=== PATIENT | male | born 1980 ===

== ENCOUNTER 2018-04-28 15:59 | Emergency (ER) | payer BC ==
[2018-04-28 16:02] VITALS: O2SAT 99
[2018-04-28] MEDS ORDERED: Sodium Chloride 0.9% 1,000 ML IV STA ×2 (17:57→18:02)
--- NOTE | 2018-04-28 18:05 | ED PDOC ---
HPI: Abdomen Time Seen by Provider: 04/28/18 18:01 Chief Complaint (Nursing): GI Problem Chief Complaint (Provider): abd pain vomiting diarrhea fever History Per: Patient, Irrigator Head History/Exam Limitations: no limitations Onset/Duration Of Symptoms: Hrs (12), Sudden Onset Current Symptoms Are (Timing): Still Present Severity: Moderate Location Of Pain/Discomfort: Diffuse, Epigastric, Periumbilical Associated Symptoms: Fever, Chills, Nausea, Vomiting, Diarrhea, Loss Of Appetite Exacerbating Factors: None Alleviating Factors: None Last Bowel Movement: Today Additional Complaint(s): 37yo male c/o abdominal pain, fever/chills, nausea vomiting and diarrhea starting 7am this morning. Denies headache, cough, SOB or sore throat. Ate ceviche last night, unknown if spoiled. Denies rash, neck pain or photophobia. Past Medical History Reviewed: Historical Data, Nursing Documentation, Vital Signs Vital Signs: Last Vital Signs Temp 100.3 F H 04/28/18 16:00 Pulse 100 H 04/28/18 16:00 Resp 16 04/28/18 16:00 BP 146/71 04/28/18 16:00 Pulse Ox 99 04/28/18 16:00 MIGUEL Report Viewed: No - Medical History PMH: No Chronic Diseases - Surgical History Surgical History: No Surg Hx - Family History Family History: States: Unknown Family Hx - Living Arrangements Living Arrangements: With Family - Social History Current smoker - smoking cessation education provided: No - Allergies Allergies/Adverse Reactions: Allergies Allergy/AdvReac Type Severity Reaction Status Date / Time No Known Allergies Allergy Verified 04/28/18 16:00 Review of Systems Constitutional: Positive for: Fever, Chills ENT: Negative for: Throat Pain Cardiovascular: Negative for: Chest Pain Respiratory: Negative for: Cough, Shortness of Breath Gastrointestinal: Positive for: Nausea, Vomiting, Abdominal Pain, Diarrhea. Negative for: Melena, Hematochezia, Hematemesis Genitourinary Male: Negative for: Dysuria, Hematuria Musculoskeletal: Negative for: Neck Pain, Back Pain Skin: Negative for: Rash, Lesions, Jaundice Neurological: Negative for: Weakness, Numbness, Headache, Dizziness Psych: Negative for: Suicidal ideation Physical Exam - Reviewed Nursing Documentation Reviewed: Yes Vital Signs Reviewed: Yes - Physical Exam Appears: Positive for: Well, Non-toxic, No Acute Distress Head Exam: Positive for: ATRAUMATIC, NORMAL INSPECTION, NORMOCEPHALIC Skin: Positive for: Normal Color, Warm, DRY Eye Exam: Positive for: EOMI, Normal appearance, PERRL ENT: Positive for: Normal ENT Inspection Neck: Positive for: Normal, Painless ROM Cardiovascular/Chest: Positive for: Regular Rate, Rhythm Respiratory: Positive for: CNT, Normal Breath Sounds Gastrointestinal/Abdominal: Positive for: Soft, Tenderness (epigastric and periumbilical) Back: Positive for: Normal Inspection Extremity: Positive for: Normal ROM Neurologic/Psych: Positive for: Alert, Oriented - Laboratory Results Result Diagrams: 04/28/18 18:13 04/28/18 18:13 - ECG O2 Sat by Pulse Oximetry: 99 Medical Decision Making Medical Decision Making: Time: 21:25 Patient will be signed out to Dr. Ragsdale pending CT Abd/Pelvis and reevaluation. Scribe Attestation: Documented by Radha Mercado, acting as a scribe for Eleuterio Velázquez DO. Provider Scribe Attestation: All medical record entries made by the Scribe were at my direction and personally dictated by me. I have reviewed the chart and agree that the record accurately reflects my personal performance of the history, physical exam, medical decision making, and the department course for this patient. I have also personally directed, reviewed, and agree with the discharge instructions and disposition. Disposition - Disposition Forms: [facility] (Armenian)
[2018-04-28 18:26] LABS: ALB/GLOB RATIO 1.2 (1.0-2.1); ALBUMIN 4.7 g/dL (3.5-5.0); ALT/SGPT 42 U/L (21-72); AST/SGOT 27 U/L (17-59); BLOOD UREA NITROGEN 13 mg/dl (9-20); CALCIUM 9.1 mg/dL (8.4-10.2); GFR NON-AFRICAN AMERICAN > 60; LIPASE 56 U/L (23-300)
[2018-04-28 18:30] LABS: BASO # 0.1 K/uL (0.0-0.2); HEMOGLOBIN 10.7 g/dL (12.0-18.0); LYMPH # 0.7 K/uL (1.0-4.3); LYMPH % 6.5 % (20.0-40.0); MEAN CELL VOLUME 66.5 fl (80.0-94.0); MEAN CORPUSCULAR HEMOGLOBIN 20.3 pg (27.0-31.0); MEAN CORPUSCULAR HGB CONC 30.5 g/dL (33.0-37.0); MEAN PLATELET VOLUME 7.2 fl (7.2-11.7); MONO # 0.6 K/uL (0.0-0.8); NEUT # 9.1 K/uL (1.8-7.0); NEUT % 86.5 % (50.0-75.0); PLATELET COUNT 349 K/uL (130-400); RBC 5.27 Mil/uL (4.40-5.90); RED CELL DISTRIBUTION WIDTH 18.7 % (11.5-14.5); WHITE BLOOD COUNT 10.5 K/uL (4.8-10.8)
[2018-04-28 18:44] LABS: SQUAMOUS EPITHIAL < 1 /hpf (0-5); URINE BILIRUBIN NEGATIVE (NEGATIVE); URINE BLOOD NEGATIVE (NEGATIVE); URINE CLARITY SLIGHTY-CLOUDY (Clear); URINE COLOR YELLOW (YELLOW); URINE GLUCOSE (UA) NEG (NEGATIVE); URINE LEUKOCYTE ESTERASE NEG Leu/uL (Negative); URINE PROTEIN 100 mg/dL (NEGATIVE); URINE UROBILINOGEN 0.2-1.0 mg/dL (0.2-1.0)
[2018-04-28] MEDS ORDERED: Iohexol 300 100 ML IJ ONE (19:03)
[2018-04-28] MEDS ORDERED: Sodium Chloride 0.9% 50 ML IV ONE (19:04)
[2018-04-28 19:06] LABS: ANISOCYTOSIS SLIGHT; BANDS 1 % (0-2); BASOPHIL 1 % (0-2); HYPOCHROMIC SLIGHT; LYMPHOCYTE 8 % (20-50); MICROCYTOSIS SLIGHT; MONOCYTE 3 % (0-10); NEUTROPHIL 87 % (42-75); PLATELET ESTIMATE NORMAL (NORMAL); POIKILOCYTOSIS SLIGHT; TOTAL CELLS COUNTED 100
--- NOTE | 2018-04-28 21:31 | ED PDOC ---
- Laboratory Results Result Diagrams: 04/28/18 18:13 04/28/18 18:13 - ECG O2 Sat by Pulse Oximetry: 99 (RA) Pulse Ox Interpretation: Normal Medical Decision Making Medical Decision Making: Time: 21:25 Patient was signed out to me by Dr. Velázquez pending CT Abd/Pelvis and reevaluation. CT Abd/Pelvis: FINDINGS: LUNG BASES: The lung bases appear clear. No pleural effusions are seen. LIVER: There is diffuse hepatic hypoattenuation compatible with fatty infiltration. GALLBLADDER AND BILE DUCTS: The gallbladder appears within normal limits. No radioopaque gallstones are seen. No biliary ductal dilatation is evident. PANCREAS: Unremarkable. SPLEEN: Unremarkable. ADRENAL GLANDS: Unremarkable. KIDNEYS, URETERS, AND BLADDER: Although underdistended, there is bladder wall thickening measuring up to 6 mm, consistent with cystitis. STOMACH AND BOWEL: Thick walled fluid filled loops of ileum compatible with enteritis. Thick walled fluid filled colon is noted with involvement of all segments compatible with diffuse pancolitis. Infectious and inflammatory etiologies are considered. APPENDIX: No evidence of acute appendicitis on CT examination. PERITONEUM: No free fluid. No free air. LYMPH NODES: No lymphadenopathy is evident. REPRODUCTIVE: Unremarkable as visualized. VASCULATURE: No evidence of abdominal aortic aneurysm. BONES: No aggressive appearing osseous lesion. No acute osseous pathology evident. IMPRESSION: 1. Fatty liver. 2. Enteritis and pancolitis. Infectious and inflammatory etiologies are considered. 3. Although underdistended, there is bladder wall thickening measuring up to 6 mm, consistent with cystitis. 01:00 Patient reports marked improvement in symptoms. Diagnosis is colitis. Patient will be discharged with prescriptions for Flagyl, Bentyl and Cipro. Stable for discharge. Scribe Attestation: Documented by Radha Mercado, acting as a scribe for Dino Ragsdale MD. Provider Scribe Attestation: All medical record entries made by the Scribe were at my direction and personally dictated by me. I have reviewed the chart and agree that the record accurately reflects my personal performance of the history, physical exam, medical decision making, and the department course for this patient. I have also personally directed, reviewed, and agree with the discharge instructions and disposition. Disposition - Clinical Impression Clinical Impression: Colitis - POA Present On Arrival: None - Disposition Disposition: Routine/Home Disposition Time: 01:10 Condition: STABLE Prescriptions: Ciprofloxacin [Cipro] 500 mg PO Q12 #14 tab Dicyclomine [Bentyl] 20 mg PO Q12 PRN #20 tab PRN Reason: abdominal pain/diarrhea metroNIDAZOLE [Flagyl] 500 mg PO Q12 #14 tab Instructions: Colitis Forms: [facility] ([place]), [facility] School/Work Excuse
[2018-04-28] MEDS ORDERED: metroNIDAZOLE 500mg/100ml NS 100 ML IVPB ONE (21:53)
[2018-04-28] MEDS ORDERED: Ciprofloxacin 400mg/200ml D5W 400 MG/200 ML BAG IVPB ONE (21:54)
[2018-04-29] MEDS ORDERED: metroNIDAZOLE 500mg/100ml NS 100 ML IVPB STA (02:11)
[2018-04-29] MEDS ORDERED: Ciprofloxacin 400mg/200ml D5W 400 MG/200 ML BAG IV STA (02:11)
[2018-04-29 02:52] VITALS: BP 127/66; PULSE 88; RESP 18; TEMP 100.6
--- NOTE | 2018-04-29 14:55 | CT ---
Date of service: 04/28/2018 PROCEDURE: CT Abdomen and Pelvis with contrast HISTORY: upper abd pain fever COMPARISON: None. TECHNIQUE: Contrast dose: 95 mL Omnipaque 300 Radiation dose: Total exam DLP = 512.16 mGy-cm. This CT exam was performed using one or more of the following dose reduction techniques: Automated exposure control, adjustment of the mA and/or kV according to patient size, and/or use of iterative reconstruction technique. FINDINGS: LOWER THORAX: Unremarkable. LIVER: Unremarkable. No gross lesion or ductal dilatation. GALLBLADDER AND BILE DUCTS: Unremarkable. PANCREAS: Unremarkable. No gross lesion or ductal dilatation. SPLEEN: Unremarkable. ADRENALS: Unremarkable. No mass. KIDNEYS AND URETERS: Unremarkable. No hydronephrosis. No solid mass. VASCULATURE: Unremarkable. No aortic aneurysm. No aortic atherosclerotic calcification or mural plaque present. BOWEL: No abnormal bowel loops. Mild sigmoid diverticulosis. No bowel obstruction. There is mild pseudo thickening of several loops of distal ileum due to inadequate distention. APPENDIX: Normal appendix. PERITONEUM: Unremarkable. No free fluid. No free air. LYMPH NODES: Unremarkable. No enlarged lymph nodes. BLADDER: Nondistended. Unable to evaluate. REPRODUCTIVE: Normal prostate BONES: No acute fracture. Hemangioma of the T10 vertebral body. OTHER FINDINGS: None. IMPRESSION: No acute abnormality. The preliminary findings for this examination were reported by [facility] at 9:34 p.m. on 04/28/2018. There is discordance of this report with the preliminary findings. There is not felt to be evidence of ileitis or colitis. Evaluation of the urinary bladder is grossly limited due to inadequate distention. Nevertheless, please correlate with urinalysis.
== END 2018-04-29 02:18 | disposition home or self-care (01) ==
LOC: H.ER 15:59
DX: K52.9 Noninfective gastroenteritis and colitis, unspecified (principal)
CPT/HCPCS: 74177; 80053; 81003; 83690; 85025; 87804; 96360; 99283; J1885; J7030; Q9967